=== PATIENT | male | born 1950 | race Caucasian/White ===

== ENCOUNTER 2017-03-27 13:55 | Outpatient (CLI) | payer MEDICARE, BC ==
[~2017-03-27 13:55] MED LIST: Gadobenate Dimeglumine 529 MG/1 ML (20ML VIAL) ONE
--- NOTE | 2017-03-27 19:50 | MRI ---
MR OF THE PELVIS WITH AND WITHOUT IV CONTRAST UTILIZING PROSTATE CANCER PROTOCOL 03/27/17 INDICATION; History of prostate cancer with biopsy done in December 2016. TECHNIQUE: Multiplanar and multisequence MR images were obtained of the pelvis with and without IV contrast. Johnna lindquist had 20 mL of Multihance utilized for the examination. FINDINGS: The prostate measures 3.8 x 2.9 x 4.0 cm given estimated total prostatic volume of 22.92 mL. There are linear regions of subtle hypointensity seen on the ACD map within the peripheral zones of t he mid gland as well as the prostatic apex without overt restricted diffusion. There is some heterogeneity seen within the central gland without suspicious lesions seen on the T2 weighted images. The visualized neurovascular bundles appear within normal limits. No definite abnormal region of enhancement is seen on the dynamic contrast enhanced images. There are a few nonpathologically enlarged lymph nodes seen within the pelvis. One is seen adjacent t o the right external iliac veins on image 29, series 42, measuring 7 mm. One is seen near the right o bturator region measuring 6 mm. There is an additional 6 mm lymph node seen adjacent to the left exte rnal iliac vein on image 34, series 2. No free fluid is evident. There are fat containing inguinal hernias bilaterally. IMPRESSION: PI-RADS CATEGORY 2: Low (clinically significant cancer is unlikely to be present). POS: [facility]
== END 2017-03-27 13:56 | disposition home or self-care (01) ==
LOC: TBSIIMAG 13:55
PROVIDERS: ATTEND Radiology Radiation Oncology
DX: C61 Malignant neoplasm of prostate (principal)
CPT/HCPCS: 72197; A9579

== ENCOUNTER 2018-03-08 13:49 | Outpatient (CLI) | payer MEDICARE, BC ==
[2018-03-08 14:17] LABS: #Basophils 0.1 thou/uL (0.0-0.2); #Eosinphils 0.2 thou/uL (0.0-0.7); #Lymphocytes 2.7 thou/uL (1.20-3.40); #Monocytes 0.7 thou/uL (0.11-0.59); #Neutrophils 3.5 thou/uL (1.40-6.50); %Basophils 0.8 % (0.0-1.0); %Eosinophils 2.4 % (0.0-10.0); %Lymphocytes 37.6 % (21.0-51.0); %Neutrophils 49.2 % (42.0-75.0); Mean Corpuscular HGB CONC 31.9 g/dL (32.0-36.0); Mean Corpuscular Volume 97.4 fL (78.0-98.0); Mean Platelet Volume 8.9 fL (7.4-10.4); Platelet Count 213 thou/uL (130-400); RBC Distribution Width 12.8 % (11.5-14.5); Red Blood Cell (RBC) Count 4.51 mill/uL (4.70-6.10); White Blood Cell (WBC) Count 7.2 thou/uL (4.8-10.8)
[2018-03-08 14:39] LABS: ALT (SGPT) 24 U/L (8-55); AST (SGOT) 20 U/L (5-34); Albumin 4.1 g/dL (3.4-4.8); Alkaline Phosphatase 99 U/L (40-150); Anion Gap 10 mmol/L (10-20); BUN (Urea Nitrogen) 17 mg/dL (8.4-25.7); Bilirubin, Total 0.6 mg/dL (0.2-1.2); Calc. Creatinine Clearance 0 mL/min (70-130); Calcium 9.7 mg/dL (7.8-10.44); Carbon Dioxide 31 mmol/L (23-31); Chloride 101 mmol/L (98-107); Estimated GFR-MDRD 70; Globulin 2.6 g/dL (2.4-3.5); Glucose 144 mg/dL (80-115); Potassium 4.4 mmol/L (3.5-5.1); Protein, Total 6.7 g/dL (5.8-8.1); Sodium 138 mmol/L (136-145)
--- NOTE | 2018-03-08 15:37 | RAD ---
CHEST ONE VIEW 03/08/18 HISTORY: Preop. COMPARISON: None. FINDINGS: The lungs are clear. Heart size is mildly enlarged. Multiple midline sternotomy wires. IMPRESSION: No acute intrathoracic abnormality. POS: [facility]
--- NOTE | 2018-03-08 16:50 | EKG ---
Test Reason : Blood Pressure : / mmHG Vent. Rate : 089 BPM Atrial Rate : 089 BPM P-R Int : 138 ms QRS Dur : 082 ms QT Int : 374 ms P-R-T Axes : 065 078 088 degrees QTc Int : 455 ms Sinus rhythm with frequent Premature ventricular complexes in a pattern of bigeminy abnormal When compared with ECG of 07-AUG-2014 16:33, Premature ventricular complexes are now Present Confirmed by DR. Karmen PIERRE ([id number]) on 03/08/2018 4:50:04 PM Referred By: NATALEE Confirmed By:DR. Karmen PIERRE
== END 2018-03-08 13:50 | disposition home or self-care (01) ==
LOC: LABBT 13:49
PROVIDERS: ATTEND Internal Medicine Cardiovascular Disease
DX: Z01.818 Encounter for other preprocedural examination (principal)
CPT/HCPCS: 71045; 80053; 85025; 93005; 93010

== ENCOUNTER → 2018-03-18 | Day surgery (SDC) | payer MEDICARE, BC ==
[2018-03-08 14:06] VITALS: BMI 45.8
[~2018-03-18] MED LIST changes: +Fentanyl 100 MCG/2 ML VIAL ONE; -Gadobenate Dimeglumine 529 MG/1 ML (20ML VIAL) ONE; +Heparin 10,000 UNITS/1 ML VIAL ONE; +Iopamidol 370 76% 100 ML VIAL ONE; +Iopamidol 370 76% 50 ML VIAL FS ONE; +Lidocaine 1% (PF) 30 ML VIAL ONE; +Midazolam HCl 2 mg/2 ml Vial ONE; +Protamine Sulfate 50 MG/5 ML VIAL ONE
== END ==
LOC: CCL 05:50
PROVIDERS: ATTEND Internal Medicine Cardiovascular Disease
PROC: 4A023N7 Measurement of Cardiac Sampling and Pressure, Left Heart, Percutaneous Approach (ICD-10-PCS; principal; 2018-03-18)
PROC: B2111ZZ Fluoroscopy of Multiple Coronary Arteries using Low Osmolar Contrast (ICD-10-PCS; 2018-03-18)
PROC: B21F1ZZ Fluoroscopy of Other Bypass Graft using Low Osmolar Contrast (ICD-10-PCS; 2018-03-18)
DX: I25.10 Atherosclerotic heart disease of native coronary artery without angina pectoris (principal); I11.0 Hypertensive heart disease with heart failure; I50.9 Heart failure, unspecified; E78.00 Pure hypercholesterolemia, unspecified; E11.9 Type 2 diabetes mellitus without complications; I25.5 Ischemic cardiomyopathy; E66.9 Obesity, unspecified; C61 Malignant neoplasm of prostate; I34.0 Nonrheumatic mitral (valve) insufficiency; G47.33 Obstructive sleep apnea (adult) (pediatric); Z87.891 Personal history of nicotine dependence; Z95.1 Presence of aortocoronary bypass graft; Z79.82 Long term (current) use of aspirin; Z79.899 Other long term (current) drug therapy; Z79.84 Long term (current) use of oral hypoglycemic drugs
CPT/HCPCS: 76942; 85347; 93459; 99152; 99153; C1769; J1644; J2001; J2250; J2720; J3010